=== PATIENT | female | born 1985 | race Caucasian/White ===

== ENCOUNTER 2018-08-11 09:34 | Emergency (ER) | payer OTHER ==
[~2018-08-11] VITALS: Ht 152.4 cm; Wt 79.8 kg
[2018-08-11 09:40] VITALS: BP 116/70
--- NOTE | 2018-08-11 09:42 | NUR ---
Patient ambulated to bed 3 with family. RN evaluating patient at bedside.
--- NOTE | 2018-08-11 09:50 | NUR ---
PT C/O SORE THROAT FOR 2 DAYS; PT ALSO C/O CHILLS, MUSCLE ACHING, DENIES FEVER AND COUGH. NO DROOLING NOTED, DENIES SOB OR CHEST PAIN AND N/V/D; SKIN IS PINK/WARM/DRY; AAOX4 WITH EVEN AND STEADY GAIT; WHITE SPOTS, +2 EDEMA, AND ERYTHEMA NOTICED ON RIGHT-SIDED THORAT. NO MASS OR SWELLING POSTERIOR AND ANTERIOR CERVICAL LYMPH NODES NOTICED ON PALPATION. ANTERIOR CERVICAL AREA TENDERNESS NOTICED. PATIENT STATES PAIN OF 9/10 AT THIS TIME; VSS; PATIENT POSITIONED FOR COMFORT; HOB ELEVATED; BEDRAILS UP X1; BED DOWN. ER MD MADE AWARE OF PT STATUS.
[2018-08-11] MEDS ORDERED: PENICILLIN G BENZATHINE L-A 1.2 MU/2 ML SYR IM ONE (10:15)
[2018-08-11] MEDS ORDERED: KETOROLAC 60 MG/2 ML VIAL IM ONE (10:15)
[2018-08-11 10:50] VITALS: BP 109/56
--- NOTE | 2018-08-11 10:51 | NUR ---
Patient discharged with v/s stable. Written and verbal after care instructions given and explained. Patient alert, oriented and verbalized understanding of instructions. Ambulatory with steady gait. All questions addressed prior to discharge. ID band removed. Patient advised to follow up with PMD. Rx of Motrin, Prednisone, and [place] given. Patient educated on indication of medication including possible reaction and side effects. Opportunity to ask questions provided and answered.
== END 2018-08-11 10:50 | disposition home or self-care (01) ==
LOC: MED 09:34
DX: J02.0 Streptococcal pharyngitis (principal); H92.09 Otalgia, unspecified ear
CPT/HCPCS: 81002; 81025; 96372; 99283; J0561; J1885